=== PATIENT | male | born 1995 | race Caucasian/White ===

== ENCOUNTER 2020-06-10 11:21 | Outpatient (CLI) | payer OTHER, SELFPAY ==
[2020-06-13 11:00] LABS: Amphetamines negative; Barbiturates negative; Benzodiazepines negative; Cocaine Metabolites negative; Marijuana Metabolites POSITIVE; PCP negative
== END 2020-06-10 11:22 | disposition home or self-care (01) ==
LOC: ANHLAB 11:24
PROVIDERS: PCP Internal Medicine; Visit Provider Clinical Nurse Specialist
DX: F40.10 Social phobia, unspecified (principal)
CPT/HCPCS: 80307

== ENCOUNTER 2020-08-19 11:39 | Outpatient (CLI) | payer OTHER, SELFPAY ==
[2020-08-19 12:10] LABS: Basophils Percent Auto 0.8 % (0.2-1.2); Eosinophils Absolute Auto 0.1 K/mm3 (0-0.3); Eosinophils Percent Auto 1.6 % (0-4.4); Hematocrit 40.7 % (42.0-52.0); Hemoglobin 14.2 g/dL (14.0-18.0); Immature Granulocyte Absolute 0.02 K/mm3 (0.00-0.031); Immature Granulocyte Percent A 0.4 % (0-0.5); Lymphocytes Absolute Auto 1.74 K/mm3 (0.9-3.2); Lymphocytes Percent Auto 33.9 % (18.3-44.2); Mean Corpuscular HGB Conc 34.9 g/dl (32-36); Mean Corpuscular Hemoglobin 32.2 pg (26-34); Mean Corpuscular Volume 92.3 fl (80-100); Mean Platelet Volume 9.2 fl (7.4-10.4); Monocytes Absolute Auto 0.5 K/mm3 (0.1-0.6); Monocytes Percent Auto 9.9 % (2.6-8.5); Neutrophils Absolute Auto 2.8 K/mm3 (1.3-6.7); Neutrophils Percent Auto 53.4 % (45.5-73.1); Platelet Count Result 194 k/mm3 (150-375); Red Blood Count 4.41 M/mm3 (4.6-6.20); Red Cell Distribution Width 11.4 % (11.5-14.5); White Blood Count 5.1 K/mm3 (4.5-10.0)
[2020-08-19 12:18] LABS: Add Urine Microscopic? YES; Appearance Urine Cloudy (Clear); Bilirubin Urine Negative (Negative); Blood Urine Negative (Negative); Color Urine Yellow (Yellow); Glucose Urine UA Negative (Negative); Ketones Urine Negative (Negative); Leukocyte Esterase Ur Negative LEU/UL (NEGATIVE); Nitrate Urine Negative (Negative); Protein Urine Negative (Negative); RBC Urine 0-2 /hpf (0-2); Specific Grav Ur 1.014 (1.001-1.035); Urobilinogen Urine Negative mg/dL (<2.0); WBC Urine 0-3 /hpf (0-3)
[2020-08-19 12:25] LABS: Alanine Aminotransferase 28 U/L (4-50); Albumin Level 4.3 g/dL (3.5-5.1); Alkaline Phosphatase 59 U/L (38-126); Anion Gap 5 mmol/L (8-16); Aspartate Amino Transferase 29 U/L (17-59); Bilirubin,Total 0.2 mg/dL (0.2-1.3); Blood Urea Nitrogen 10 mg/dL (9-20); Calcium 9.1 mg/dL (8.4-10.2); Carbon Dioxide 28 mmol/L (22-30); Chloride 105 mmol/L (98-107); Estimated Glomerular Filt Rate > 60; Glucose 95 mg/dL (75-110); Potassium 4.1 mmol/L (3.4-5.0); Sodium 138 mmol/L (137-145)
[2020-08-19 12:55] LABS: Thyroid Stimulating Hormone 0.202 uIU/mL (0.465-4.680)
[2020-08-19 13:04] LABS: HIV 1/2 Ab P24 Ag Result Negative (Negative)
[2020-08-19 13:16] LABS: Erythrocyte Sedimentation Rate 5 mm/hr (0-20)
[2020-08-19 13:39] LABS: Hepatitis C Virus Antibody Negative (Negative)
== END 2020-08-19 11:40 | disposition home or self-care (01) ==
PROVIDERS: PCP Internal Medicine; Visit Provider Nurse Practitioner
DX: R63.4 Abnormal weight loss (principal)
CPT/HCPCS: 36415; 80053; 81001; 84443; 85025; 85652; 86703; 86803; G0432

== ENCOUNTER 2020-09-02 13:24 | Outpatient (CLI) | payer OTHER, SELFPAY ==
[2020-09-02 14:48] LABS: Thyroid Stimulating Hormone 0.437 uIU/mL (0.465-4.680)
[2020-09-02 15:52] LABS: Free T4 Free Thyroxine 0.76 ng/mL (0.78-2.19)
[2020-09-05 08:26] LABS: Triiodothyronine T3 Free 3.3 pg/mL (2.3-4.2)
== END 2020-09-02 13:25 | disposition home or self-care (01) ==
LOC: ANHLAB 13:25
PROVIDERS: PCP Internal Medicine; Visit Provider Clinical Nurse Specialist
DX: R79.89 Other specified abnormal findings of blood chemistry (principal)
CPT/HCPCS: 36415; 84439; 84443; 84481

== ENCOUNTER 2025-05-05 09:38 | Outpatient (CLI) | payer OTHER, SELFPAY ==
--- OUTSIDE RECORDS SUMMARY | 2025-05-05 09:40 | XMS_ITS | Clinical Summary ---
Author Organization [facility] Address [address] [place] [address] Phone Care Team Providers Care Assembly Line Worker Name Role Phone Latoya Liu MD Primary Care Provider [phone] Allergies Active Allergy Reactions Criticality Noted Date Comments Metoclopramide Hcl Other (See Comments) 019 dystonia Medications ARIPiprazole (ABILIFY) 5 mg tablet Take 1 Tablet (5 mg) by mouth daily. 30 Tablet 1 10/21/2018 Active clonazePAM (KlonoPIN) 0.5 mg TabletIndication s:anxiety Take 1 Tablet (0.5 mg) by mouth 3 times daily. 90 Tablet 10/24/2018 Active desvenlafaxine (PRISTIQ) 100 mg Extended Release 24 hour tabletIndication s:depression Take 1 Tablet (100 mg) by mouth daily at bedtime. 30 Tablet 1 10/30/2018 Active mirtazapine (REMERON) 30 mg tabletIndication s:depression Take 1 Tablet (30 mg) by mouth daily at bedtime. 30 Tablet 1 10/30/2018 Active Active Problems Problem Noted Date Diagnosed Date Severe recurrent major depre ssion without psychotic features 10/06/2018 History of seizure Immunizations Immunization Administration Dates Next Due INFLUENZA VACCINE QUADRIVALENT 6 MOS UP PF IM Family History Medical History Relation Name Comments Anxiety Brother Anxiety Father Bipolar Disorder Father Anxiety Maternal Grandfather Bipolar Disorder Paternal Grandfather Cancer Paternal Grandmother Anxiety Sister Relation Name Status Comments Brother Father Maternal Grandfather Paternal Grandfather Paternal Grandmother Sister Social History Tobacco Use Types Packs/Day Years Used Date Smoking Tobacco: Some Days Cigarettes Smokeless Tobacco: Current Chew Comments:Trying to reduce- s moking 1 cigarette day Alcohol Use Standard Drinks/Week Comments Yes 0 (1 standard drink = 0.6 oz pur e alcohol) Feeling Safe Answer Date Recorded Within the last year, have y ou been afraid of your partner or ex-partner? No 10/14/2018 Within the last year, have y ou been humiliated or emotionally abused in other ways by your partner or ex-partner? No Within the last year, have y ou been kicked, hit, slapped, or otherwise physically hurt by your partner or ex-partner? No 10/14/2018 Within the last year, have y ou been raped or forced to have any kind of sexual activity by your partner or ex-partner? No 10/14/2018 Social Connections Answer Date Recorded In a typical week, how many times do you talk on the phone with family, friends, or neighbors? Three times a week 10/14/2018 How often do you get togethe r with friends or relatives? Twice a week 10/14/2018 How often do you attend chur ch or quaker services? Never 10/14/2018 Do you belong to any clubs o r organizations such as mormon groups, unions, fraternal or athletic groups, or school groups? No 10/14/2018 How often do you attend meet ings of the clubs or organizations you belong to? Never 10/14/2018 Marital Status Not on file 10/14/2018 Financial Resource Strain Answer Date R ecorded How hard is it for you to pa y for the very basics like food, housing, medical care, and heating? Not hard at all 10/14/2018 Food Insecurity Answer Date Recorded Within the past 12 months, y ou worried that your food would run out before you got the money to buy more. Never true 10/15/19 19 Within the past 12 months, t he food you bought just didn't last and you didn't have money to get more. Never true 10/14/2018 Transportation Needs Answer Date Record ed In the past 12 months, has l ack of transportation kept you from medical appointments or from getting medications? No 08/2018 In the past 12 months, has l ack of transportation kept you from meetings, work, or from getting things needed for daily living? 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 Gender Identity Not on file Sexual Orientation Not on file Last Filed Vital Signs Vital Sign Reading Time Taken Comments Blood Pressure 133/77 10/14/2018 1:24 PM CDT Pulse 66 10/14/2018 1:24 PM CDT Temperature 37.2 C (99 F) 10/14/2018 1:24 PM CDT Respiratory Rate 18 10/13/2018 11:13 AM CDT Oxygen Saturation 99% 10/13/2018 11:13 AM CDT Inhaled Oxygen Concentration - - Weight 73.9 kg (163 lb) 10/14/2018 1:24 PM CDT Height 186.7 cm (6' 1.5) 10/14/2018 1:24 PM CDT Body Mass Index 21.21 10/14/2018 1:24 PM CDT Plan of Treatment Health Maintenance Due Date Last Done Comments DTAP/TDAP/TD VACCINES (1 - Tdap) 2016 HEPATITIS B VACCINES (1 of 3 - 19+ 3-dose series) 10/13 INFLUENZA VACCINE (#1) 2024 04/03/2022 HPV VACCINES (No Doses Required) Completed Insurance [employer] [facility] [place] [address] RX [employer] RX Member Subscriber Plan / Payer (Ef fective 2022-Present) Name:AlexandreCornel gudino Relation to Subscriber:Self Name:SugarprasadCornel gudino Subscriber ID:Not on file Payer ID:Not on file Type:RX Commercial Address: [address] [facility] OPT[employer] PPO [address] [employer] [place] [employer] Advance Directives For more information, please contact: [phone] * Full Code (Latest Code Status on File) Date Activated Date Inactivated Comments 10/06/2018 6:47 PM 10/13/2018 3:30 PM Care Teams Assembly Line Worker Relationship Specialty Start Date End Date Young, Latoya R, [place] [address] [address] PCP - General Pediatrics 07/15/14
--- OUTSIDE RECORDS SUMMARY | 2025-05-05 09:41 | XMS_ITS | Encounter Summary ---
Author Organization [facility] Address [address] [place] [address] Care Team Providers Care Sow Farm Barn Technician Name Role Phone Latoya Liu MD Primary Care Provider [phone] Encounter Details Date Type Department Care Team (Late st Contact Info) Description 10/29/2018 Telephone [facility] [address] [place] [address] Delia Langley MD [address] [facility] [place] [address] Social History Tobacco Use Types Packs/Day Years [...] often do you attend chur ch or jehovah's witness services? 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
[2025-05-05 17:15] LABS: Alanine Aminotransferase 29 U/L (6-50); Albumin Level 4.4 g/dL (3.5-5.1); Alkaline Phosphatase 71 U/L (38-126); Anion Gap 7 mmol/L (4-12); Aspartate Amino Transferase 50 U/L (17-59); Bilirubin,Total 0.7 mg/dL (0.2-1.3); Blood Urea Nitrogen 18 mg/dL (9-20); Calcium 9.4 mg/dL (8.4-10.2); Carbon Dioxide 29 mmol/L (22-30); Chloride 102 mmol/L (98-107); Cholesterol 224 mg/dL (0-200); Estimated Glomerular Filt Rate > 60; Glucose 85 mg/dL (65-110); HDL Direct 52 mg/dL; Potassium 3.7 mmol/L (3.4-5.0); Sodium 138 mmol/L (137-145); Total Protein 6.7 g/dL (6.3-8.2); Triglycerides 134 mg/dL (<150)
[2025-05-05 17:16] LABS: Hematocrit 42.7 % (42.0-52.0); Hemoglobin 14.7 g/dL (14.0-18.0); Immature Granulocyte Percent A 0.4 % (0-0.5); Lymphocytes Absolute Auto 1.90 K/mm3 (0.9-3.2); Mean Corpuscular HGB Conc 34.4 g/dl (32-36); Mean Corpuscular Hemoglobin 32.6 pg (26-34); Mean Corpuscular Volume 94.7 fl (80-100); Nucleated Red Blood Cells Absolute Auto 0.000 K/mm3 (0.0-0.012); Nucleated Red Blood Cells Perc 0.0 % (0.0-0.2); Platelet Count Result 207 k/mm3 (150-375); Red Blood Count 4.51 M/mm3 (4.6-6.20); White Blood Count 4.8 K/mm3 (4.5-10.0)
[2025-05-10 10:08] LABS: Summary Report (Summary) FINAL (.)
== END 2025-05-05 09:39 | disposition home or self-care (01) ==
LOC: ANHGOSHLAB 09:39
PROVIDERS: PCP Internal Medicine; Visit Provider Nurse Practitioner
DX: F40.10 Social phobia, unspecified (principal); Z13.220 Encounter for screening for lipoid disorders
CPT/HCPCS: 36415; 80053; 80061; 80307; 85025